=== PATIENT | male | born 2000 | race Two or more races ===

== ENCOUNTER 2023-06-11 09:04 | Emergency (ER) | payer OTHER ==
[~2023-06-11] VITALS: Ht 190.5 cm; Wt 67.6 kg
[2023-06-11] MEDS ORDERED: CLARITIN5 MG PO (09:25)
[2023-06-11] MEDS ORDERED: GUAIFENESIN 600 MG TABLET.SA PO ONE (09:45)
[2023-06-11] MEDS ORDERED: ONDANSETRON HCL 2 MG/ML VIAL IM ONE (09:45)
[2023-06-11] MEDS ORDERED: GUAIFENESIN/DEXTROMETHORPHAN 100 MG/5 ML ML PO ONE (09:45)
[2023-06-11] MEDS ORDERED: 0.9 % SODIUM CHLORIDE 1 ML IV ONE (10:00)
[2023-06-11 10:05] LABS: HEMATOCRIT 44.3 % (39.0-48.0); HEMOGLOBIN 15.6 g/dL (13-16.00); MEAN CELL VOLUME 86.1 fL (80.0-100.00); MEAN CORPUSCULAR HEMOGLOBIN 30.3 pg (27.00-32.0); MEAN CORPUSCULAR HGB CONC 35.2 g/dl (32.0-36.0); PLATELET COUNT 137 K/uL (150-450); RED BLOOD COUNT 5.14 M/uL (4.00-6.00)
[2023-06-11 10:37] LABS: ALBUMIN 4.2 gm/dL (3.4-5.0); BILIRUBIN TOTAL 1.01 mg/dL (0.3-1.2); CALCIUM 9.6 mg/dL (8.5-10.1); CREATININE SERUM 1.21 mg/dL (0.70-1.30); GFR 75.7; GLOBULINA 3.5 G/DL (2.4-3.5); POTASSIUM 4.06 mEq/L (3.5-5.1); TOTAL PROTEIN 7.7 gm/dL (6.4-8.2)
== END 2023-06-11 11:36 | disposition home or self-care (01) ==
LOC: ER 09:04
PROVIDERS: General Practice
DX: J11.1 Influenza due to unidentified influenza virus with other respiratory manifestations (principal); Z20.822 Contact with and (suspected) exposure to COVID-19